=== PATIENT | female | born 1945 | race Caucasian/White ===

== ENCOUNTER → 2016-08-15 | Outpatient (CLI) | payer MEDICARE ==
[~2016-08-15] MED LIST: ATENOLOL25 MG PO; COMBIVENT1 ARO; FLUTICASON0.05 MG/AC NAS; INSULIN-HUMA100 U/ML; INVOKANA100 M1 PO; LANTUS100 U/ML SC; LISINOPRIL HCTZ1 TA1 PO; LOSARTAN POTASS1 TA5 PO; MAXZIDE 25 MG-31 TAB PO; MULTIVITAMIN1 CTB PO; NOVOLOG MI100 UNIT/1 SC; OMEPRAZOLE20 MG PO; PROMETHAZINE25 M1 PO; SYNTHROID,LEV112 MCG PO; TRIAMTERENE AND1 TAB PO; VICODIN 5/500 505 MG PO; VITAMIN D32000 UNI1 PO; XANAX1 MG PO
== END | disposition home or self-care (01) ==
LOC: RAD 13:56
DX: M17.0 Bilateral primary osteoarthritis of knee (principal); M16.0 Bilateral primary osteoarthritis of hip; G89.29 Other chronic pain

== ENCOUNTER 2016-08-19 20:19 | Inpatient (IN) | payer MEDICARE ==
[~2016-08-19] VITALS: Ht 154.9 cm; Wt 100.0 kg
[2016-08-19 20:19] VITALS: BP 134/78
[2016-08-19 20:44] LABS: BASO % 0.5 % (0.0-1.0); EOS # 0.3 10*3/uL (0.0-0.4); EOS % 3.2 % (1.0-4.0); HEMOGLOBIN 15.8 g/dl (12.0-16.0); LYMPH # 1.6 10*3/uL (1.3-4.4); LYMPH % 20.1 % (27.0-41.0); MEAN CELL VOLUME 85.8 fl (81.0-99.0); MEAN CORPUSCULAR HGB 28.8 pg (27.0-31.0); MEAN CORPUSCULAR HGB CONC 33.6 g/dl (33.0-37.0); MEAN PLATELET VOLUME 9.4 fl (9.6-12.3); MONO # 0.8 10*3/uL (0.1-1.0); MONO % 9.7 % (3.0-9.0); NEUT # 5.3 10*3/uL (2.3-7.9); NEUT % 66.1 % (47.0-73.0); PLATELET COUNT AUTOMATED 322 10*3/uL (130-400); RED BLOOD COUNT 5.48 10*6/uL (4.10-5.10); RED CELL DISTRI WIDTH 12.5 % (0-14.5)
[2016-08-19 20:56] LABS: POTASSIUM 3.8 mmol/L (3.5-5.1)
[2016-08-19 21:14] LABS: BILIRUBIN NEGATIVE (NEGATIVE); BLOOD TRACE-INTACT (NEGATIVE); CLARITY CLEAR (CLEAR); COLOR YELLOW (YELLOW); GLUCOSE 3+ (NEGATIVE); KETONE NEGATIVE (NEGATIVE); LEUKO ESTERASE NEGATIVE (NEGATIVE); NITRITE NEGATIVE (NEGATIVE); PH 5.5 (5.0-9.0); PROTEIN NEGATIVE (NEGATIVE); SPECIFIC GRAVITY <= 1.005 (1.005-1.030); UROBILINOGEN 0.2 E.U./dl (0.2-1.0)
[2016-08-19 21:18] LABS: BACTERIA TRACE; EPITHELIAL CELLS 0-2; RBC 0-2 rbc/hpf (0-2)
[2016-08-19 21:19] LABS: URINE REFLEX COMMENT YES (NO)
[2016-08-19 23:45] VITALS: BP 157/67
[2016-08-20 06:34] LABS: BASO % 0.4 % (0.0-1.0); EOS # 0.3 10*3/uL (0.0-0.4); EOS % 3.5 % (1.0-4.0); HEMATOCRIT 42.3 % (37.0-47.0); HEMOGLOBIN 13.9 g/dl (12.0-16.0); LYMPH % 21.5 % (27.0-41.0); MEAN CELL VOLUME 87.6 fl (81.0-99.0); MEAN CORPUSCULAR HGB 28.8 pg (27.0-31.0); MEAN CORPUSCULAR HGB CONC 32.9 g/dl (33.0-37.0); MEAN PLATELET VOLUME 9.3 fl (9.6-12.3); MONO # 1.1 10*3/uL (0.1-1.0); MONO % 11.5 % (3.0-9.0); NEUT % 62.8 % (47.0-73.0); PLATELET COUNT AUTOMATED 297 10*3/uL (130-400); RED BLOOD COUNT 4.83 10*6/uL (4.10-5.10); RED CELL DISTRI WIDTH 12.6 % (0-14.5); WHITE BLOOD COUNT 9.5 10*3/uL (4.8-10.8)
[2016-08-20 06:50] LABS: BUN 21 mg/dl (7-24); CARBON DIOXIDE 29 mmol/L (21-32); CHLORIDE 105 mmol/L (98-107); GLUCOSE 137 mg/dL (65-99); POTASSIUM 3.6 mmol/L (3.5-5.1); SODIUM 143 mmol/L (136-145)
[2016-08-20 07:02] LABS: EST GLOM FILT AFRICAN AMERICAN > 60 ml/min; FREE T4 1.23 ng/dl (0.76-1.46)
[2016-08-20 08:00] VITALS: BP 134/60
[2016-08-20 11:52] VITALS: BP 128/50
[2016-08-20 15:46] VITALS: BP 145/51
== END 2016-08-20 18:02 | disposition home or self-care (01) | DRG 683 ==
LOC: ED 20:19 → EDHOLD 22:08 → 4E 22:08
PROVIDERS: Internal Medicine; Student in an Organized Health Care Education/Training Program
DX: N17.0 Acute kidney failure with tubular necrosis (principal); Z68.41 Body mass index [BMI] 40.0-44.9, adult; E11.65 Type 2 diabetes mellitus with hyperglycemia; I10 Essential (primary) hypertension; E86.0 Dehydration; E03.9 Hypothyroidism, unspecified; J45.20 Mild intermittent asthma, uncomplicated; M19.90 Unspecified osteoarthritis, unspecified site; Z82.0 Family history of epilepsy and other diseases of the nervous system; Z83.3 Family history of diabetes mellitus; Z80.51 Family history of malignant neoplasm of kidney; Z88.6 Allergy status to analgesic agent; Z88.8 Allergy status to other drugs, medicaments and biological substances; Z79.4 Long term (current) use of insulin; Z79.899 Other long term (current) drug therapy; E66.01 Morbid (severe) obesity due to excess calories

== ENCOUNTER → 2016-11-22 | Outpatient (CLI) | payer MEDICARE | END | disposition home or self-care (01) | LOC: CT 14:35 | DX: M17.11 Unilateral primary osteoarthritis, right knee (principal); M25.761 Osteophyte, right knee; Z96.651 Presence of right artificial knee joint ==

== ENCOUNTER → 2017-01-14 | Outpatient (CLI) | payer MEDICARE ==
[2017-01-14 10:46] LABS: BASO # 0.1 10*3/uL (0.0-0.1); BASO % 0.6 % (0.0-1.0); EOS # 0.3 10*3/uL (0.0-0.4); EOS % 3.7 % (1.0-4.0); HEMATOCRIT 46.2 % (37.0-47.0); HEMOGLOBIN 15.7 g/dl (12.0-16.0); LYMPH % 24.4 % (27.0-41.0); MEAN CORPUSCULAR HGB 29.6 pg (27.0-31.0); MONO # 0.7 10*3/uL (0.1-1.0); NEUT % 61.8 % (47.0-73.0); PLATELET COUNT AUTOMATED 294 10*3/uL (130-400); RED BLOOD COUNT 5.31 10*6/uL (4.10-5.10); RED CELL DISTRI WIDTH 12.8 % (0-14.5); WHITE BLOOD COUNT 8.1 10*3/uL (4.8-10.8)
[2017-01-14 10:50] LABS: BILIRUBIN NEGATIVE (NEGATIVE); BLOOD NEGATIVE (NEGATIVE); CLARITY CLEAR (CLEAR); COLOR YELLOW (YELLOW); GLUCOSE 3+ (NEGATIVE); KETONE NEGATIVE (NEGATIVE); LEUKO ESTERASE NEGATIVE (NEGATIVE); NITRITE NEGATIVE (NEGATIVE); PH 5.5 (5.0-9.0); SPECIFIC GRAVITY 1.015 (1.005-1.030); UROBILINOGEN 0.2 E.U./dl (0.2-1.0)
[2017-01-14 11:17] LABS: ALBUMIN 3.6 gm/dl (3.1-4.5); ALKALINE PHOSPHATASE 68 U/L (45-117); BUN 24 mg/dl (7-24); CHLORIDE 104 mmol/L (98-107); RBC 0-2 rbc/hpf (0-2); SGOT/AST 22 IU/L (3-35); SGPT/ALT 18 U/L (12-78); SODIUM 140 mmol/L (136-145); TOTAL PROTEIN 7.6 gm/dL (6.4-8.2)
== END | disposition home or self-care (01) ==
LOC: LAB 08:37
PROVIDERS: Orthopaedic Surgery
DX: M17.11 Unilateral primary osteoarthritis, right knee (principal); Z96.651 Presence of right artificial knee joint; E11.9 Type 2 diabetes mellitus without complications; I10 Essential (primary) hypertension; J45.909 Unspecified asthma, uncomplicated; Z79.899 Other long term (current) drug therapy

== ENCOUNTER 2017-01-21 02:59 | Inpatient (IN) | payer MEDICARE ==
[~2017-01-21] VITALS: Ht 154.9 cm; Wt 94.3 kg
[2017-01-21] VITALS (9 sets, daily range): BP systolic 123–157; BP diastolic 42–64
--- NOTE | ~2017-01-21 | O ---
[place], [place] OPERATIVE NOTE NAME: DEION DAVIS [facility] #: [id number] UNIT #: [id number] ROOM: 404 DOCTOR: CHERYL PEREZ DO BIRTHDATE: [birth year] DOS: 01/21/2017 PREOPERATIVE DIAGNOSIS: Right knee osteoarthritis. POSTOPERATIVE DIAGNOSIS: Right knee osteoarthritis. OPERATIVE PROCEDURE: Right total knee ConforMIS tricompartmental cemented. SURGEON: Cheryl Perez DO. FIRST ASSISTANTS: Juanis and Anny. ANESTHESIA: KRISHAN Parker. TYPE OF ANESTHESIA: Spinal. INDICATIONS: The patient is a 71-year-old female with a history of severe osteoarthritis of the right knee, unrelieved with conservative care. The risks and benefits of the procedure were explained to the patient and her preoperatively. Preoperative labs and x-rays were obtained including preoperative medical clearance. PROCEDURE IN DETAIL: The right knee was marked in the holding room. The patient was brought to the operative suite. A spinal anesthetic was performed. The patient received Ancef 2 grams IV piggyback. The patient was placed supine on the operative table. A tourniquet was applied to the right upper thigh. The right lower extremity was prepped and draped in the usual orthopedic fashion. A midline incision was planned over the right knee and the area was injected with Marcaine 0.25% with epinephrine. The extremity was exsanguinated and the tourniquet was inflated to 350 mmHg. The patient received the Ancef 2 grams IV piggyback prior to inflation of the tourniquet. The incision was made sharply with a scalpel. Subcutaneous tissue was spread down to the level of the quadriceps mechanism. Electrocautery was used to maintain hemostasis. The quadriceps mechanism was divided in medial parapatellar fashion. The patella was slid laterally and the knee was flexed 90 degrees. The prepatellar fat pad and anterior cruciate ligament were debrided. The F1 jig was placed over the distal femur with the stylus at the anterior cortex. The coring tool was utilized to create 2 holes in the distal femur to the level of the subchondral bone. The alignment I Jig F2 was attached to the distal resection I jig F3C. Two parallel drill holes were placed to the anterior femur, followed by a cross pin to stabilize the distal cutting block. The distal holes in the femur were then drilled and marked with a marking pen. The F2-I jig was removed. The step cut was made utilizing the reciprocating saw, followed by the oscillating saw. The cross pin was removed. The F3C block was removed. The spacer block was used to confirm the cut of the distal femur. Two smooth pins were placed from the previously marked holes in the distal femur. The F4 block was put into place over these pins. The jono wing was used to confirm the anterior resection would not notch the femur. Two [place], [place] OPERATIVE NOTE NAME: DEION DAVIS UNIT #: [id number] ROOM: [facility] DOCTOR: CHERYL PEREZ DO BIRTHDATE: [birth year] additional cross pins were placed. The anterior femoral cut followed by the posterior femoral cut and the anterior chamfer cuts were made. The drill was used to make the corresponding lug holes in the distal femur through this F4-I jig. Pins were removed and the cuts were evaluated. The chamfer I jig F4 was then placed over the previously drilled lug holes and gently impacted. The open chamfer cut resection was made followed by the captured resection. The jig was removed and the area was copiously irrigated with normal limits. Any remaining medial and lateral meniscal tissue was debrided. The posterior condyles were removed of any osteophytes using a curved osteotome, followed by a curette. Then, the area was copiously irrigated with normal saline. Attention was then turned to the proximal tibia. The T1 5 degree I jig was placed over the proximal tibia after the articular cartilage was removed with a curette to level of subchondral bone. The 5 degree T1 jig was then secured with pins and the alignment xiomy was attached to ensure proper position. When this was completed, the x-pins were placed to stabilize the block. The proximal tibial cut was made using an oscillating saw, followed by an osteotome to remove the articular surface of the tibia. Any remaining tibial or femoral fragments were removed as well as any loose bony debris. Any remaining meniscus tissue was removed. The area was copiously irrigated with normal saline. The femoral trial and the tibial trials were put into place. The knee was taken through range of motion, 0-120, noted to have good stability at 0 and 30 degrees in both varus and valgus directions. The rotation was marked with a Bovie for the distal femur. The trials were removed. The tibial block was put into place,, followed by the intramedullary reamer at 12 mm and the flange punch. This was removed and the area was again irrigated. The patella was measured and determined to be best served with the 29 mm patellar component, which was 6 mm thick. The articular surface of the patella was removed using a freehand oscillating saw. The 3 peg hole guide was utilized to drill the holes for the trial. The trial was put into place. All trials were replaced and the knee was taken through a range of motion, evaluating patellar tracking, varus and valgus stress and range of motion. When these were all found to be adequate, the trials were removed. The area was copiously irrigated with normal saline. The methyl methacrylate was mixed. The tibial tray was covered with methyl methacrylate, impacted into place. Any excess cement was removed using a Garland elevator. The femoral component was then covered with a single layer of methyl methacrylate impacted into place. Any excess cement was removed with the Garland elevator and curette. The trial lateral tibial insert 7 mm and medial tibial insert 7 mm were put into place and the knee was brought into full extension. The methyl methacrylate was allowed to set. As this was hardening, the patellar implant was cemented into place and held with a clamp. When all methyl methacrylate was hard, the polyethylene trials were removed. The area was evaluated for any remaining cement. The posterior capsules were injected with Marcaine 0.25% with epinephrine. The 8 mm polyethylene insert was implanted laterally, followed by medially and clicked into place. The range of motion was again performed as was the varus and valgus stress. All were found to be adequate. [place], [place] OPERATIVE NOTE NAME: DEION DAVIS Mckenna UNIT #: [id number] ROOM: [facility] DOCTOR: CHERYL PEREZ DO BIRTHDATE: [birth year] Final irrigation was performed of the knee. The wound was closed in a layered fashion with 0 Vicryl, followed by 0 Vicryl for the quadriceps mechanism, followed by 2-0 Vicryl for the adipose layer and skin rick. The tourniquet was released. The dressing of Xeroform, 4 x 4's, Adaptic, cast padding and Edwin bandage was applied. The patient was taken to the recovery room in satisfactory condition. SPONGE AND NEEDLE COUNT: Correct. ESTIMATED BLOOD LOSS: 100 mL. DRAINS: None. PACKING: None. SPECIMENS: Bone and soft tissue. FINDINGS: Tricompartmental osteoarthritis of the right knee with multiple cystic areas which were curetted and filled with autologous bone graft. IMPLANTS: ConforMIS total knee with an I total femoral and tibial implants and the I total 8 mm poly cruciate retaining insert and a 29 mm patellar component. CHERYL PEREZ DO CM:OPRECORD:OPERATIVE NOTE 1514 CHERYL PEREZ DO 01/21/17 1647 interface
[~2017-01-21 02:59] MED LIST changes: -NOVOLOG MI100 UNIT/1 SC; +NOVOLOG MI100 UNIT/1 SQ
--- NOTE | 2017-01-21 12:00 | NUR ---
A 71, admitted to , under the services of ZHAO Contreras DO with a diagnosis of ARTHROPLASTY R KNEE. Chief complaint is POST-OP. Patient arrived via stretcher from [place]. Monitor applied. Initial assessment completed. Vital signs taken and recorded. ZHAO CONTRERAS DO notified of admission to the unit. Orders received. See assessment for past medical history, medications and allergies. Patient and/or family oriented to unit. [facility] visitation policy reviewed. Clothing/patient valuable form completed. ELIF MCDUFFIE
--- NOTE | 2017-01-21 13:50 | NUR ---
INSTRUCTED FOR IS. PT ACHIEVING A VOLUME OF 1000 X 7 BREATHS. PT VERY SLEEPY. WILL REINSTRUCT. SAT 99% ON 2L/M.
--- NOTE | 2017-01-21 14:15 | NUR ---
PHYSICAL THERAPY PT attempted two times to initate PT, patient to lethargic. Will attept at a later date or time. Thank you for this referral. Felisha Unger,PT
[2017-01-21 15:16] LABS: BASO % 0.2 % (0.0-1.0); EOS % 0.2 % (1.0-4.0); HEMATOCRIT 44.5 % (37.0-47.0); HEMOGLOBIN 14.3 g/dl (12.0-16.0); LYMPH % 6.1 % (27.0-41.0); MEAN CELL VOLUME 91.9 fl (81.0-99.0); MEAN CORPUSCULAR HGB 29.5 pg (27.0-31.0); MEAN CORPUSCULAR HGB CONC 32.1 g/dl (33.0-37.0); MEAN PLATELET VOLUME 9.6 fl (9.6-12.3); MONO # 1.2 10*3/uL (0.1-1.0); MONO % 7.1 % (3.0-9.0); NEUT # 14.4 10*3/uL (2.3-7.9); NEUT % 85.9 % (47.0-73.0); PLATELET COUNT AUTOMATED 232 10*3/uL (130-400); RED BLOOD COUNT 4.84 10*6/uL (4.10-5.10); RED CELL DISTRI WIDTH 12.9 % (0-14.5); WHITE BLOOD COUNT 16.7 10*3/uL (4.8-10.8)
[2017-01-21 15:29] LABS: ALBUMIN 2.7 gm/dl (3.1-4.5); ALKALINE PHOSPHATASE 64 U/L (45-117); BUN 12 mg/dl (7-24); CHLORIDE 113 mmol/L (98-107); CREATININE 0.78 mg/dL (0.55-1.02); POTASSIUM 3.7 mmol/L (3.5-5.1); SGOT/AST 17 IU/L (3-35); SGPT/ALT 18 U/L (12-78); SODIUM 142 mmol/L (136-145); TOTAL PROTEIN 6.4 gm/dL (6.4-8.2)
--- NOTE | 2017-01-21 15:31 | NUR ---
PHYSICAL THERAPY PAtient reports she is too ill for PT at [facility] time. Nurse educated. Thank you for this referral. Felisha archuleta,PT
--- NOTE | 2017-01-21 16:15 | NUR ---
CPM MACHINE APPLIED AT FLEXION 40 DEGREES. TOLERATING WELL.
--- NOTE | 2017-01-21 17:25 | NUR ---
RECTAL TEMP 95.3. BEAR HUGGER APPLIED.
--- NOTE | 2017-01-21 17:26 | NUR ---
SMALL EMESIS NOTED. MEDICATED WITH ZOFRAN ORDERED IV. REMAINS DROWSY. TOOK A COUPLE BITES OF POPSICLE AND APPLESAUCE. DENIES ANY NEED FOR PAIN MED AT THIS TIME.
--- NOTE | 2017-01-21 19:00 | NUR ---
PT. STATES THAT PT. IS DOING I/S WITH HIS ASSISTENCE.
--- NOTE | 2017-01-21 22:37 | NUR ---
PT REQUESTED PAIN MEDICATION FOR RIGHT KNEE PAIN. PAIN RATED AT 5. TYLENOL GIVEN.
--- NOTE | 2017-01-21 23:18 | NUR ---
PAIN MEDICATOIN EFFECTIVE PER PT. PAIN RATED AT 3 OUT OF 10.
[2017-01-22] VITALS: BP 139/61
--- NOTE | 2017-01-22 00:06 | NUR ---
REMOVED WARMING BLANKET FROM PT. ORAL TEMP 97.9. PT COMPLAINING OF BEING HOT AND SWEATING. RECHECKED TEMP 1 HOUR LATER. TEMP WAS 97.8 ORALLY. WILL CONTINUE TO MONITOR PT AND TEMP.
--- NOTE | 2017-01-22 00:09 | NUR ---
PT REQUESTED MEDICATION FOR NAUSEA. ZOFRAN GIVEN.
--- NOTE | 2017-01-22 00:33 | NUR ---
ZOFRAN EFFECTIVE PER PT. NAUSEA/VOMITING HAS DECREASED.
--- NOTE | 2017-01-22 03:30 | NUR ---
PT REQIUESTED MEDICATION FOR NAUSEA. ZOFRAN GIVEN.
--- NOTE | 2017-01-22 03:45 | NUR ---
PT TEMP REMAINS AT 97.9. WARMING [facility] REMAINS OFF.
[2017-01-22 03:47] VITALS: BP 135/47
--- NOTE | 2017-01-22 04:01 | NUR ---
ZOFRAN EFFECTIVE. PT REPORTS DECREASE OF NAUSEA.
[2017-01-22 06:11] LABS: BASO % 0.2 % (0.0-1.0); HEMATOCRIT 39.7 % (37.0-47.0); LYMPH # 0.8 10*3/uL (1.3-4.4); MEAN CELL VOLUME 90.2 fl (81.0-99.0); MEAN CORPUSCULAR HGB 29.5 pg (27.0-31.0); MEAN CORPUSCULAR HGB CONC 32.7 g/dl (33.0-37.0); MEAN PLATELET VOLUME 9.5 fl (9.6-12.3); MONO # 1.5 10*3/uL (0.1-1.0); MONO % 12.1 % (3.0-9.0); NEUT # 9.7 10*3/uL (2.3-7.9); NEUT % 80.3 % (47.0-73.0); PLATELET COUNT AUTOMATED 252 10*3/uL (130-400); RED CELL DISTRI WIDTH 13.2 % (0-14.5)
--- NOTE | 2017-01-22 06:19 | NUR ---
PT REQUESTED PAIN MEDICATION FOR POST-OP PAIN IN RIGHT KNEE. "SORE AND HURTS TO MOVE IT." RATED 9 OUT OF 10.
[2017-01-22 06:38] LABS: ACT PARTIAL THROMBO TIME 25.4 SECONDS (20.8-31.5)
[2017-01-22 06:41] LABS: ALBUMIN 2.7 gm/dl (3.1-4.5); BUN 11 mg/dl (7-24); CHLORIDE 104 mmol/L (98-107); CHOLESTEROL 157 mg/dL (<200); CREATININE 0.82 mg/dL (0.55-1.02); MAGNESIUM 1.5 mg/dL (1.5-2.1); PHOSPHOROUS 3.2 mg/dL (2.5-4.9); POTASSIUM 3.7 mmol/L (3.5-5.1); SGOT/AST 18 IU/L (3-35); SGPT/ALT 15 U/L (12-78); SODIUM 140 mmol/L (136-145); TOTAL PROTEIN 6.2 gm/dL (6.4-8.2); TRIGLYCERIDES 82 mg/dl (<150); VLDL CHOLESTEROL 16 mg/dL (6-40)
[2017-01-22 06:48] LABS: ALKALINE PHOSPHATASE 58 U/L (45-117); HDL CHOLESTEROL 58 mg/dl (40-60); LDL CHOLESTEROL 83 mg/dL (9-159); THYROID STIM HORMONE (HS) 0.519 uIU/ml (0.358-4.75)
[2017-01-22 07:01] LABS: VITAMIN D, 25-HYDROXY 34.8 ng/mL (30-100)
--- NOTE | 2017-01-22 07:06 | NUR ---
TYLENOL EFFECTIVE PER PT. PAIN RATED AT 4 OUT OF 10.
[2017-01-22 08:00] VITALS: BP 134/65
--- NOTE | 2017-01-22 08:00 | NUR ---
Paper Novelty Maker in to talk to patient. Patient states lives at HOME with HER . There are 11 steps in the home. Physician: ONEL Pharmacy: [facility] Home health services: Patient's level of ADLs: Patient has working utilities: YES DME: [facility] Follow-up physician's appointment after d/c: WILL BE MADE PRIOR TO DC Does patient want to access PORTAL?: Discharge plan . MOIRA MADDEN REQUESTS SNF STAY AT THE [facility]. STATES SHE HAS ALREADY SPOKEN TO YISEL AT [facility] AND SHOULD HAVE BED AVAILABLE BY TIME SHE IS DC. DC OFFICE WORKER WILL MAKE REFERRAL.
--- NOTE | 2017-01-22 08:55 | NUR ---
MEDICATED WITH PERCOCET FOR COMPLAINTS OF RIGHT KNEE PAIN. RATES PAIN A 7 ON A PAIN SCALE OF 1-10.
--- NOTE | 2017-01-22 09:54 | NUR ---
PHYSICAL THERAPY PAtient evaluated on 4, full evaluation to follow. Continue with PT as per plan of care with fall, acute right TKA and mod (A) x 2 precautions. Will require SNF for impaired mobility in order to return to home at (i) PLOF. PAtient is moderate complexity via chart review, tests and evaluation: [id number]. Thank you for this referral. Felisha Adamson,PT
--- NOTE | 2017-01-22 10:35 | NUR ---
Occupational Therapy evaluation completed this date on 4 with full eval to follow. Precautions include fall risk, moderate complexity level 75162, R TKA, CPM to right knee. Recommend OT per POC and SNF upon d/c to enable safe return home at [facility]. Thank you for this referral. Tereza Allen OTR/l
--- NOTE | 2017-01-22 10:42 | NUR ---
Patient asked to be referred to the [facility] rehab suites. Contacted [facility] and faxed referral, will need snf order and requires a 3 night stay. Waiting on acceptance.
--- NOTE | 2017-01-22 11:43 | NUR ---
PHYSICAL THERAPY Alexia adames for her physical therapy session and wanting to go back to bed having right knee pain. Pt is a right TKA with impaired mobility. With verbal cueing transfer sit/stand with MOD A X 1, up on wheeled walker standing balance once up MIN A X 1, standing. Then gait 8' X 1, with wheeled walker and MOD SOURCING SPECIALIST X 1, with verbal cueing for gait safety with just slow gait due to right TKA and no LOB. Pt back supine MOD A X 1, Pt with call light and nursing in to put on her CPM. ROD SPEAR HOT BLASTER.
[2017-01-22 12:00] VITALS: BP 160/46
--- NOTE | 2017-01-22 14:13 | NUR ---
PHYSICAL THERAPY Pnt was seen for 20' of 1:1 PT this pm. Pain on arrival 01/14. Pnt was instructed in basic supine exercises incl: glut sets, quad sets, and ankle pumps x 10 reps each along with gentle heel slides x 5 reps. She transferred to EOB with min assist x 1 primarily to stabilize R LE during activity. Sit to stand required mod assist x 1 to puw. She ambulated a distance of 6' to chair at bedside with education in patterning and off-loading techniques. Once at chair, she transferred to sitting with min assist x 1, again with step by step instruction. Feet were elevated and call light placed within reach. Pnt demonstrated difficulty WB thru R LE throughout gait d/t increased pain. Pain on departure 01/14. Nurse notified of difficulties with pain control. Elda Rodriguez, PT
--- NOTE | 2017-01-22 15:01 | NUR ---
MEDICATED WITH ULTRAM FOR COMPLAINTS OF RIGHT KNEE PAIN AND ZOFRAN 4MG IV FOR NAUSEA. RATES PAIN A 10 ON A PAIN SCALE 1-10.
[2017-01-22 16:00] VITALS: BP 112/38
--- NOTE | 2017-01-22 17:46 | NUR ---
I HAVE REVIEWED THE ASSESSMENTS. Michelle HANDY RN
--- NOTE | 2017-01-22 19:30 | NUR ---
PT REQUESTED PAIN MEDICATION FOR RIGHT KNEE PAIN, "ABOVE THE KNEE AND DOWN." PT RATES PAIN AT 8 OUT OF 10.
[2017-01-22 20:00] VITALS: BP 149/48
--- NOTE | 2017-01-22 20:21 | NUR ---
PT STILL IN PAIN. STATES IT IS DECREASING BUT STILL VERY PAINFUL.
--- NOTE | 2017-01-22 21:05 | NUR ---
PT PLACED IN CPM MACHINE AT 0 EXTENSION, 40 FLEXION. TOLERATING WELL ALTHOUGH IN MUCH PAIN. PT ALSO HAD BEEN RUNNING A SLIGHT FEVER. AT 1999 TEMP WAS 99.7. WHEN RECHECKED AT 2099 HER TEMP WAS 100.0. NOTIFIED VIA ANSWERING SERVICE. PER DR. RIOS, SHE WANTS THE PTS TYLENOL AND ULTRAM TO ALTERNATE.
--- NOTE | 2017-01-22 22:11 | NUR ---
PT REMOVED FROM CPM. TOLERATED WELL. REPOSITIONED IN BED. TYLENOL ADMINISTERED FOR POST-OP PAIN OF RIGHT KNEE. PT RATED PAIN AT 7 OUT OF 10.
--- NOTE | 2017-01-22 23:02 | NUR ---
TYLENOL SEEMS TO BE EFFECTIVE FOR PT. IN BED SLEEPING. NO DISTRESS NOTED.
[2017-01-23] VITALS: BP 153/46
--- NOTE | 2017-01-23 06:10 | NUR ---
PT. ALERT AND ORIENTED X3. PLACED PT. ON CPM MACHINE PER ORDERED SETTINGS. PT. TOLERATING THIS WELL AT THIS TIME.
[2017-01-23 06:16] LABS: HEMATOCRIT 35.4 % (37.0-47.0); HEMOGLOBIN 11.6 g/dl (12.0-16.0); MEAN CORPUSCULAR HGB 28.5 pg (27.0-31.0); MEAN CORPUSCULAR HGB CONC 32.8 g/dl (33.0-37.0); MEAN PLATELET VOLUME 9.7 fl (9.6-12.3); PLATELET COUNT AUTOMATED 263 10*3/uL (130-400); RED BLOOD COUNT 4.07 10*6/uL (4.10-5.10); RED CELL DISTRI WIDTH 13.2 % (0-14.5); WHITE BLOOD COUNT 11.6 10*3/uL (4.8-10.8)
[2017-01-23 06:30] VITALS: BP 148/40
[2017-01-23 06:50] LABS: BUN 14 mg/dl (7-24); CHLORIDE 103 mmol/L (98-107); CREATININE 0.75 mg/dL (0.55-1.02); POTASSIUM 3.3 mmol/L (3.5-5.1); SODIUM 139 mmol/L (136-145)
[2017-01-23 06:51] LABS: BASOPHILS 1 % (0-1); TOTAL CELLS COUNTED 100 #CELLS
[2017-01-23 06:54] LABS: PLATELET SUFFICIENCY NORMAL (NORMAL)
--- NOTE | 2017-01-23 07:00 | NUR ---
CPM DISCONTINUED PT. TOLERATED, ABOUT 1 HR, WELL. ICE PACK TO RIGHT KNEE.
--- NOTE | 2017-01-23 07:20 | NUR ---
DR. RIOS CALLED IN AND NOTIFIED PT. CONDITION AND ORDER PLACED BY HER TO DC RANDLE CATHETER.
[2017-01-23 08:00] VITALS: BP 142/48
--- NOTE | 2017-01-23 09:42 | NUR ---
PTS RANDLE CATHETER DISCONTINUED AT THIS TIME.
--- NOTE | 2017-01-23 10:11 | NUR ---
[facility] to [facility] and can go after 3 night stay, tomorrow 01/24/17
--- NOTE | 2017-01-23 10:41 | NUR ---
PHYSICAL THERAPY Alexia seen this AM 1:1 for her physical therapy session and we supinr in bed with small roll under right knee, quad, so taking this away to work in right knee extension. Pt said not much change in her pain and had her pain meds, 12/15. Transfer supine/sit slow with MOD A X 1, helping right LE. Sitting balance with right knee working into flexion to Pt's pain tolerance. Sit/stand and up on wheeled walker, standing balance with weight shift. Then gait only 4' X 1 and Alexia getting nauseated at this time and wanting to sit, said that she might vomit, Pt up in her bedside chair, calll light and tray just wanting to rest. I stopped back 1 hr 20 min later Pt said that she was feeling better and was going to stay up for now. ROD SPEAR TEST HOLE DRILLER.
--- NOTE | 2017-01-23 11:27 | NUR ---
DR. RIOS TO COME AT LUNCH TO DO DRESSING CHANGE PER HER OFFICE.
[2017-01-23 12:00] VITALS: BP 140/44
--- NOTE | 2017-01-23 12:04 | NUR ---
PHYSICAL THERAPY Alexia seen this PM 1:1 for her therapy session and had just gotten back into bed from this morning. Gait with her aids and wheeled walker 8' X 1, back into bed no LOB. Pt had rom act assist and act Ex to right LE, knee with slight improvement in her pain. Working more on right knee flexion/extension with slight stretch. Pt with call light, phone and lunch coning. ROD SPEAR DRIVEWAY ATTENDANT.
[2017-01-23 16:00] VITALS: BP 130/44
[2017-01-23 20:00] VITALS: BP 134/43
--- NOTE | 2017-01-23 21:46 | NUR ---
PRN ULTRAM GIVEN FOR PT COMPLAINTS OF 8/10 RIGHT KNEE PAIN. CALL LIGHT WITHIN REACH, WILL MONITOR
--- NOTE | 2017-01-23 23:00 | NUR ---
PRN MEDICATION APPEARS EFFECTIVE, PT SLEEPING
--- NOTE | 2017-01-23 23:46 | NUR ---
PRN TYLENOL GIVEN FOR LOW GRADE TEMP OF 99.3. CALL LIGHT WITHIN REACH, WILL MONITOR
[2017-01-24] VITALS: BP 153/54
[2017-01-24 06:14] LABS: BASO % 0.4 % (0.0-1.0); EOS # 0.2 10*3/uL (0.0-0.4); EOS % 1.7 % (1.0-4.0); HEMATOCRIT 34.4 % (37.0-47.0); HEMOGLOBIN 11.3 g/dl (12.0-16.0); LYMPH # 2.3 10*3/uL (1.3-4.4); LYMPH % 22.4 % (27.0-41.0); MEAN CORPUSCULAR HGB 28.9 pg (27.0-31.0); MEAN CORPUSCULAR HGB CONC 32.8 g/dl (33.0-37.0); MEAN PLATELET VOLUME 9.2 fl (9.6-12.3); MONO # 1.4 10*3/uL (0.1-1.0); MONO % 13.4 % (3.0-9.0); NEUT # 6.2 10*3/uL (2.3-7.9); NEUT % 61.4 % (47.0-73.0); PLATELET COUNT AUTOMATED 255 10*3/uL (130-400); RED BLOOD COUNT 3.91 10*6/uL (4.10-5.10); RED CELL DISTRI WIDTH 13.2 % (0-14.5); WHITE BLOOD COUNT 10.1 10*3/uL (4.8-10.8)
--- NOTE | 2017-01-24 06:33 | NUR ---
PATIENT PLACED ON CPM MACHINE AT THIS TIME
[2017-01-24 08:00] VITALS: BP 133/46
--- NOTE | 2017-01-24 09:13 | NUR ---
PHYSICAL THERAPY Alexia seen this AM X 2 and is on her CPM, will stop back later today. ROD SPEAR RESEARCH PROGRAM MANAGER.
--- NOTE | 2017-01-24 09:55 | NUR ---
MEDICATED WITH PRN PO TYLENOL FOR RIGHT KNEE PAIN.
--- NOTE | 2017-01-24 10:34 | NUR ---
PHYSICAL THERAPY Back to treat Pt, Pt off her CPM, had her OT treatment and was up in her bedside chair. Start with rom, act assist and act to right LE knee, flexion/extension with much improvement today over yesterday and not as much pain this treatment. Sit/stand and up on standard walker standing balance MOD A X 1, no LOB. Followed by gait her best so far 42' X 1, standard walker and MOD A X 1, no LOB with cueing for gait, walker, turn safety and heel strike, toe off improving due to her pain improving. Pt back up in her bedside chair, call light, phone and no complaint. ROD SPEAR SAP HANA DEVELOPER.
--- NOTE | 2017-01-24 11:02 | NUR ---
PRN PO TYLENOL EFFECTIVE, PER PATIENT.
[2017-01-24] MEDS ORDERED: NORCO 5-325 TA1 EACH PO (11:05)
[2017-01-24] MEDS ORDERED: DUONEB 3 MG/3 ML3 M1 NEB (11:05)
[2017-01-24] MEDS ORDERED: Insulin Lispro, Reco SC (11:05)
--- NOTE | 2017-01-24 11:36 | NUR ---
Patient is being discharged to [facility] at 2PM with [place]. Tx and nursing notified.
--- NOTE | 2017-01-24 11:47 | NUR ---
PATIENT SEEN FOR 30 MINUTES THIS DATE. PATIENT SEEN 1:1. IDENTIFIED PATIENT BY NAME AND DATE OF . PATIENT IN BED UPON ARRIVAL. COMPLETED SUPINE TO SIT EOB MOD A WITH EDUCATION USE RAIL INCREASE INDEPENDENCE. PATIENT COMPLETED STAND PIVOT TRANSFER USE WALKER KACIE BED TO TOILET AND BACK TO BED. COMPLETED TOILETING MIN A THIS DATE WITH EDUCATION USE WALKER SUPPORT AND SAFETY. PATIENT COMPLETED AMBULATION SHORT DISTANCE TO RECLINER MIN A WITH USE WALKER WITH MOD VERBAL CUES SAFETY. PATIENT COMPLETED STANDING TOLERANCE ACTIVITY USE WALKER SUPPORT 4 MINUTES WITH C/O FATIGUE. PATIENT C/O PAIN R TKA THIS DATE WITH NURSING AWARE. PATIENT REQUIRED INCREASE TIME TO COMPLETE TASKS. PATIENT UP SEATED IN RECLINER COMPLETING GROOMING ZAPATA WITH CALL LIGHT WITHIN REACH. MAGALYS KRAFT/Rozina
[2017-01-24 12:00] VITALS: BP 128/51
--- NOTE | 2017-01-24 12:24 | NUR ---
PHYSICAL THERAPY CO-SIGN I approve of the Phyical Therapy notes written above. JULIA MARTI PT
--- NOTE | 2017-01-24 12:42 | NUR ---
REPORT CALLED TO RECEIVING NURSE AT [facility]. LUMBER CARRIER OPERATOR FOR DISCHARGE BY [facility] SCHEDULED FOR 2PM.
--- NOTE | 2017-01-24 13:59 | NUR ---
PATIENT DISCHARGED TO [facility] BY AMBULANCE SERVICE, IS PRESENT.
--- NOTE | 2017-01-24 14:11 | NUR ---
UPON REVIEW OF DISCHARGE INSTRUCTIONS, NO ORDER FOR PROPHYLACTIC LOVENOX SC NOTED. PER DR. RIOS'S OFFICE STAFF, PROGRESS NOTE FROM 01/[address] RIOS INDICATES LOVENOX 30MG SC DAILY TO CONTINUE AFTER DISCHARGE, DR. GÓMEZ NOTIFIED, NOTIFIED [facility] AND FAXED THE PROGRESS NOTE TO [facility].
[2017-01-24] MEDS ORDERED: Lovenox40 MG/0.4 SQ (14:32)
--- NOTE | 2017-01-24 14:45 | NUR ---
[facility] called and reviewed the LOvenox order. Lovenox to be stopped on POD#14 (after 02/04/17 dose.) Also reviewed that per orders rick to removed POD#14 and steri-strips applied
--- NOTE | 2017-01-27 08:25 | NUR ---
OCCUPATIONAL THERAPY CO-SIGN I approve of the Occupational Therapy notes written above. JOAQUIN HOGUE OTR/Rozina
== END 2017-01-24 12:42 | disposition other institution (70) | DRG 470 ==
LOC: SDC 02:59 → 4E 07:51 → SDC 08:45 → 4E 01-23 11:03
PROVIDERS: Internal Medicine Nephrology; Orthopaedic Surgery; ADMIT Internal Medicine
PROC: 0SRC0J9 Replacement of Right Knee Joint with Synthetic Substitute, Cemented, Open Approach (ICD-10-PCS; principal; 2017-01-21)
DX: M17.11 Unilateral primary osteoarthritis, right knee (principal); E44.0 Moderate protein-calorie malnutrition; E11.9 Type 2 diabetes mellitus without complications; J45.909 Unspecified asthma, uncomplicated; I10 Essential (primary) hypertension; E03.9 Hypothyroidism, unspecified; E55.9 Vitamin D deficiency, unspecified; Z79.4 Long term (current) use of insulin; Z82.0 Family history of epilepsy and other diseases of the nervous system; Z68.39 Body mass index [BMI] 39.0-39.9, adult; Z83.3 Family history of diabetes mellitus; Z80.51 Family history of malignant neoplasm of kidney; Z88.8 Allergy status to other drugs, medicaments and biological substances; Z79.899 Other long term (current) drug therapy

== ENCOUNTER → 2017-02-14 | Outpatient (CLI) | payer MEDICARE ==
[~2017-02-14] MED LIST changes: +DUONEB 3 MG/3 ML3 M1 NEB; +Insulin Lispro, Reco SC; +Lovenox40 MG/0.4 SQ; +NORCO 5-325 TA1 EACH PO
== END | disposition home or self-care (01) ==
LOC: ORTHO 03:23
DX: M25.461 Effusion, right knee (principal)

== ENCOUNTER → 2017-05-07 | Outpatient (CLI) | payer MEDICARE | END | disposition home or self-care (01) | LOC: ORTHO 00:39 | DX: M25.461 Effusion, right knee (principal); Z96.651 Presence of right artificial knee joint ==

== ENCOUNTER → 2017-05-28 | Outpatient (CLI) | payer MEDICARE ==
[2017-05-28 13:01] LABS: ACT PARTIAL THROMBO TIME 23.9 SECONDS (20.8-31.5); INTERNATIONAL NORM RATIO 0.9 (2.0-3.5)
== END | disposition home or self-care (01) ==
LOC: LAB 01:29 → EDSTATUS 13:00 → SDC 13:00
PROVIDERS: Family Medicine
DX: R59.0 Localized enlarged lymph nodes (principal)

== ENCOUNTER → 2017-08-01 | Outpatient (CLI) | payer MEDICARE ==
[2017-08-01 15:48] LABS: BASO % 0.5 % (0.0-1.0); EOS # 0.3 10*3/uL (0.0-0.4); EOS % 3.9 % (1.0-4.0); HEMATOCRIT 48.2 % (37.0-47.0); HEMOGLOBIN 15.7 g/dl (12.0-16.0); LYMPH % 24.4 % (27.0-41.0); MEAN CELL VOLUME 89.3 fl (81.0-99.0); MEAN CORPUSCULAR HGB 29.1 pg (27.0-31.0); MEAN CORPUSCULAR HGB CONC 32.6 g/dl (33.0-37.0); MEAN PLATELET VOLUME 9.1 fl (9.6-12.3); MONO # 0.7 10*3/uL (0.1-1.0); MONO % 8.5 % (3.0-9.0); NEUT # 5.2 10*3/uL (2.3-7.9); NEUT % 62.5 % (47.0-73.0); PLATELET COUNT AUTOMATED 313 10*3/uL (130-400); RED CELL DISTRI WIDTH 13.1 % (0-14.5); WHITE BLOOD COUNT 8.3 10*3/uL (4.8-10.8)
== END | disposition home or self-care (01) ==
LOC: ORTHO 00:33 → LAB 00:33 → ORTHO 17:41
PROVIDERS: Orthopaedic Surgery
DX: M25.461 Effusion, right knee (principal); Z96.651 Presence of right artificial knee joint

== ENCOUNTER → 2018-01-28 | Outpatient (CLI) | payer MEDICARE | END | disposition home or self-care (01) | LOC: ORTHO 01:02 | DX: M25.561 Pain in right knee (principal); Z96.651 Presence of right artificial knee joint ==

== ENCOUNTER 2018-07-13 03:32 | Emergency (ER) | payer MEDICARE ==
[~2018-07-13] VITALS: Ht 154.9 cm; Wt 84.4 kg
== END 2018-07-13 05:11 | disposition home or self-care (01) ==
LOC: ED 03:32
DX: R20.2 Paresthesia of skin (principal); T38.3X5A Adverse effect of insulin and oral hypoglycemic [antidiabetic] drugs, initial encounter; M19.90 Unspecified osteoarthritis, unspecified site; J45.909 Unspecified asthma, uncomplicated; E11.9 Type 2 diabetes mellitus without complications; E03.9 Hypothyroidism, unspecified; Z98.890 Other specified postprocedural states; Z79.899 Other long term (current) drug therapy; Z88.5 Allergy status to narcotic agent; Z88.6 Allergy status to analgesic agent; Z79.4 Long term (current) use of insulin; Y92.89 Other specified places as the place of occurrence of the external cause

== ENCOUNTER 2018-12-28 14:05 | Emergency (ER) | payer MEDICARE ==
[~2018-12-28] VITALS: Ht 154.9 cm; Wt 79.4 kg
[2018-12-28 15:34] LABS: BASO % 0.4 % (0.0-1.0); EOS # 0.2 10*3/uL (0.0-0.4); EOS % 3.8 % (1.0-4.0); HEMATOCRIT 39.4 % (37.0-47.0); HEMOGLOBIN 13.3 g/dl (12.0-16.0); LYMPH # 0.2 10*3/uL (1.3-4.4); MEAN CORPUSCULAR HGB 30.4 pg (27.0-31.0); MEAN CORPUSCULAR HGB CONC 33.8 g/dl (33.0-37.0); MEAN PLATELET VOLUME 8.4 fl (9.6-12.3); MONO # 0.8 10*3/uL (0.1-1.0); MONO % 16.8 % (3.0-9.0); NEUT # 3.5 10*3/uL (2.3-7.9); NEUT % 74.4 % (47.0-73.0); PLATELET COUNT AUTOMATED 205 10*3/uL (130-400); RED BLOOD COUNT 4.38 10*6/uL (4.10-5.10); RED CELL DISTRI WIDTH 13.5 % (0-14.5); WHITE BLOOD COUNT 4.7 10*3/uL (4.8-10.8)
[2018-12-28 15:44] LABS: ACT PARTIAL THROMBO TIME 28.1 SECONDS (20.0-32.1); INTERNATIONAL NORM RATIO 0.9 (2.0-3.5)
[2018-12-28 15:55] LABS: ALBUMIN 2.9 gm/dl (3.1-4.5); ALKALINE PHOSPHATASE 85 U/L (45-117); BUN 12 mg/dl (7-24); CHLORIDE 104 mmol/L (98-107); CREATININE 0.78 mg/dL (0.55-1.02); SGOT/AST 20 IU/L (3-35); SGPT/ALT 21 U/L (12-78); SODIUM 137 mmol/L (136-145); TOTAL PROTEIN 6.7 gm/dL (6.4-8.2)
== END 2018-12-28 17:20 | disposition home or self-care (01) ==
LOC: ED 14:05
PROVIDERS: Nurse Practitioner
DX: C85.90 Non-Hodgkin lymphoma, unspecified, unspecified site (principal); Z98.890 Other specified postprocedural states; Z79.899 Other long term (current) drug therapy; Z79.4 Long term (current) use of insulin; Z88.6 Allergy status to analgesic agent; Z88.5 Allergy status to narcotic agent

== ENCOUNTER → 2019-02-10 | Day surgery (SDC) | payer MEDICARE ==
[~2019-02-10] VITALS: Ht 154.9 cm; Wt 79.4 kg
[~2019-02-10] MED LIST changes: +ACYCLOVIR400 MG PO; +ALDACTONE25 M1 PO; +BENADRYL ALLERG25 M5 PO; +CARAFATE1 GM PO; +COMBIVENT RESPIM4 GM INH; +DECADRON4 MG PO; +IRBESARTAN75 M1 PO; +JARDIANCE25 MG PO; +LEVEMIR FL100 UNIT/1 SQ; +LIPITOR10 MG PO; +RITUXAN10 MG/1 ML IV; +SMZ/TMP 200MG/420 ML PO; +TYLENOL EXTRA500 MG PO; +XANAX0.25 MG PO; +ZYRTEC10 MG PO
--- NOTE | ~2019-02-10 | O ---
[place], [place] OPERATIVE NOTE NAME: DEION DAVIS [facility] #: [id number] UNIT #: [id number] ROOM: DOCTOR: SUSIE SUTHERLAND MD BIRTHDATE: [birth year] DOS: 02/10/2019 PREOPERATIVE DIAGNOSIS: Cataract, right eye. POSTOPERATIVE DIAGNOSIS: Cataract, right eye. OPERATION: Extracapsular cataract extraction by phacoemulsification with posterior chamber intraocular lens implantation, right eye. ANESTHESIA: Monitored standby. OPERATIVE FINDINGS AND PROCEDURE: 2% Xylocaine topical anesthetic gel was applied to the eye in the preop area. The patient was taken to the operating room and prepped and draped in the standard fashion for sterile intraocular surgery. A time out procedure was performed verifying correct patient, correct site and corrects lens with Jeri Sutherland M.D. The operating microscope was swung into position and the lid speculum was inserted. Using a Lizz paracentesis blade, a paracentesis was made through clear cornea. Viscoelastic was used to fill the anterior chamber. Using a metal keratome a 2.4 mm self-sealing clear corneal cataract incision was made temporally at the limbus. Using a pre-bent 25 gauge cystotome needle, a standard continuous curvilinear capsulorrhexis was performed. The anterior capsule was removed with forceps. The lens nucleus was hydrodissected and phacoemulsified in the posterior chamber. Cortical material was removed with the irrigation aspiration hand piece and the posterior capsule was then polished with a curet under irrigation. The posterior chamber and capsular bag were filled with viscoelastic. A posterior chamber intraocular lens manufactured by: [employer], Model #[id number], and 25.5 diopters in strength were then inserted into the posterior chamber and within the capsular bag using the lens cartridge and injector system. Viscoelastic was removed using the irrigation aspiration handpiece. The anterior chamber was filled with balanced salt solution through the paracentesis. Both the paracentesis site and cataract incisions were hydrated with BSS and verified to be water-tight and self-sealing. Cefuroxime 1 mg/0.1 mL was injected into the anterior chamber through the paracentesis site. The incision checked to be water-tight using a Weck-Alma sponge. The integrity of the cataract wound and ocular tension were checked. Lid speculum and drapes were removed. The patient was transferred from the operating room to the recovery room in satisfactory condition. [place], [place] OPERATIVE NOTE NAME: DEION DAVIS UNIT #: [id number] ROOM: DOCTOR: KOKO SHEN,SUSIE BIRTHDATE: [birth year] SUSIE SUTHERLAND MD CM:OPRECORD:OPERATIVE NOTE 1107 [id number] SUSIE SUTHERLAND MD 02/10/19 1114 interface
[2019-02-10 08:31] VITALS: BP 150/56
[2019-02-10 09:38] VITALS: BP 102/34
[2019-02-10 09:53] VITALS: BP 97/32
[2019-02-10 10:08] VITALS: BP 103/42
== END | disposition home or self-care (01) ==
LOC: SDC 02-04 10:15
DX: H25.811 Combined forms of age-related cataract, right eye (principal); I10 Essential (primary) hypertension; J45.909 Unspecified asthma, uncomplicated; F41.9 Anxiety disorder, unspecified; K21.9 Gastro-esophageal reflux disease without esophagitis; E78.00 Pure hypercholesterolemia, unspecified; E11.36 Type 2 diabetes mellitus with diabetic cataract; E66.9 Obesity, unspecified; Z68.33 Body mass index [BMI] 33.0-33.9, adult; Z79.899 Other long term (current) drug therapy; Z98.890 Other specified postprocedural states; Z88.8 Allergy status to other drugs, medicaments and biological substances; Z83.3 Family history of diabetes mellitus; Z82.49 Family history of ischemic heart disease and other diseases of the circulatory system; Z79.4 Long term (current) use of insulin

== ENCOUNTER → 2020-07-06 | Outpatient (CLI) | payer MEDICARE | END | disposition home or self-care (01) | LOC: RAD 13:44 | PROVIDERS: ATTEND Nurse Practitioner Family | DX: Z13.820 Encounter for screening for osteoporosis (principal); E11.9 Type 2 diabetes mellitus without complications; Z78.0 Asymptomatic menopausal state ==

== ENCOUNTER 2020-11-10 12:11 | Emergency (ER) | payer MEDICARE ==
[~2020-11-10] VITALS: Ht 154.9 cm; Wt 83.9 kg
== END 2020-11-10 16:41 | disposition home or self-care (01) ==
LOC: ED 12:11
DX: M77.8 Other enthesopathies, not elsewhere classified (principal); M25.531 Pain in right wrist; Z88.8 Allergy status to other drugs, medicaments and biological substances; Z88.6 Allergy status to analgesic agent; Z79.899 Other long term (current) drug therapy; Z79.4 Long term (current) use of insulin; Z98.890 Other specified postprocedural states; Z96.651 Presence of right artificial knee joint

== ENCOUNTER → 2020-12-21 | Outpatient (CLI) | payer MEDICARE | END | disposition home or self-care (01) | LOC: RAD 14:15 | PROVIDERS: ATTEND Nurse Practitioner Family | DX: R30.0 Dysuria (principal); R31.9 Hematuria, unspecified; E11.9 Type 2 diabetes mellitus without complications ==

== ENCOUNTER → 2021-02-20 | Outpatient (CLI) | payer MEDICARE | END | disposition home or self-care (01) | LOC: RAD 11:23 | PROVIDERS: ATTEND Nurse Practitioner Family | DX: R09.89 Other specified symptoms and signs involving the circulatory and respiratory systems (principal); R05.9 Cough, unspecified; R06.2 Wheezing ==

== ENCOUNTER → 2021-03-23 | Outpatient (CLI) | payer MEDICARE ==
[2021-03-23 09:34] LABS: CREATININE 1.3 mg/dL (0.55-1.02)
== END | disposition home or self-care (01) ==
LOC: CT 03-22 11:00 → LAB 08:58 → CT 09:00
PROVIDERS: Radiology Diagnostic Radiology; ATTEND Urology
DX: N13.30 Unspecified hydronephrosis (principal); K86.89 Other specified diseases of pancreas; R31.29 Other microscopic hematuria

== ENCOUNTER → 2021-03-27 | Outpatient (CLI) | payer MEDICARE ==
[2021-03-27 14:46] LABS: BASO % 0.6 % (0.0-1.0); EOS # 0.1 10*3/uL (0.0-0.4); EOS % 2.4 % (1.0-4.0); HEMATOCRIT 39.9 % (37.0-47.0); LYMPH % 20.6 % (27.0-41.0); MEAN CORPUSCULAR HGB 31.2 pg (27.0-31.0); MEAN CORPUSCULAR HGB CONC 33.6 g/dl (33.0-37.0); MEAN PLATELET VOLUME 8.4 fl (9.6-12.3); MONO # 0.8 10*3/uL (0.1-1.0); MONO % 16.9 % (3.0-9.0); NEUT # 2.9 10*3/uL (2.3-7.9); NEUT % 57.7 % (47.0-73.0); PLATELET COUNT AUTOMATED 391 10*3/uL (130-400); RED BLOOD COUNT 4.29 10*6/uL (4.10-5.10); RED CELL DISTRI WIDTH 12.6 % (0-14.5)
[2021-03-27 15:02] LABS: ALBUMIN 3.5 gm/dl (3.1-4.5); CREATININE 1.5 mg/dL (0.55-1.02); POTASSIUM 5.6 mmol/L (3.5-5.1); TOTAL PROTEIN 7.7 gm/dL (6.4-8.2)
[2021-03-27 15:10] LABS: THYROID STIM HORMONE (HS) 0.724 uIU/ml (0.358-4.75)
[2021-03-28 10:07] LABS: CREATININE,URINE 23.7 mg/dL (Not Estab.); MICRO ALBUMIN/CRE RATIO <13 (0-29)
== END | disposition home or self-care (01) ==
LOC: LAB 14:21
PROVIDERS: ATTEND Nurse Practitioner Family
DX: E11.9 Type 2 diabetes mellitus without complications (principal)

== ENCOUNTER → 2021-05-16 | Outpatient (CLI) | payer MEDICARE ==
[2021-05-16 11:23] LABS: BUN 22 mg/dl (7-24); CREATININE 1.06 mg/dL (0.55-1.02)
== END | disposition home or self-care (01) ==
LOC: LAB 10:59
PROVIDERS: ATTEND Urology
DX: N13.30 Unspecified hydronephrosis (principal)

== ENCOUNTER → 2021-05-21 | Outpatient (CLI) | payer MEDICARE | END | disposition home or self-care (01) | LOC: CT 04-30 09:00 | PROVIDERS: ATTEND Urology | DX: N13.30 Unspecified hydronephrosis (principal); K31.89 Other diseases of stomach and duodenum; K86.9 Disease of pancreas, unspecified ==

== ENCOUNTER → 2021-06-06 | Outpatient (CLI) | payer MEDICARE | END | disposition home or self-care (01) | LOC: NM 10:37 | PROVIDERS: ATTEND Urology | DX: N13.30 Unspecified hydronephrosis (principal) ==

== ENCOUNTER → 2021-11-15 | Outpatient (CLI) | payer MEDICARE | END | disposition home or self-care (01) | LOC: RAD 11:49 | PROVIDERS: ATTEND Nurse Practitioner Family | DX: M19.031 Primary osteoarthritis, right wrist (principal); M85.841 Other specified disorders of bone density and structure, right hand ==

== ENCOUNTER → 2021-12-31 | Outpatient (CLI) | payer MEDICARE ==
[2021-12-31 10:41] LABS: BILIRUBIN Negative (Negative); BLOOD Negative (Negative); CLARITY Clear (Clear); COLOR Yellow (Yellow); GLUCOSE 3+ (Negative); KETONE Negative (Negative); LEUKO ESTERASE 2+ (Negative); NITRITE Negative (Negative); PH 5.5 (4.5-8.0); SPECIFIC GRAVITY 1.015 (1.001-1.030); UROBILINOGEN 0.2 E.U./dl (0.0-1.0)
[2021-12-31 10:48] LABS: BACTERIA 3+; WBC 31-40 wbc/hpf (0-5)
[2021-12-31 10:54] LABS: ALKALINE PHOSPHATASE 103 U/L (45-117); BUN 18 mg/dl (7-24); CHLORIDE 107 mmol/L (98-107); CHOLESTEROL 143 mg/dL (<200); CREATININE 1.06 mg/dL (0.55-1.02); FREE T4 1.17 ng/dl (0.76-1.46); LDL CHOLESTEROL 64 mg/dL (9-159); POTASSIUM 4.2 mmol/L (3.5-5.1); SGOT/AST 15 IU/L (3-35); SGPT/ALT 23 U/L (12-78); SODIUM 140 mmol/L (136-145); TOTAL PROTEIN 7.2 gm/dL (6.4-8.2); TRIGLYCERIDES 102 mg/dl (<150)
== END | disposition home or self-care (01) ==
LOC: LAB 09:44
PROVIDERS: ATTEND Internal Medicine
DX: E11.65 Type 2 diabetes mellitus with hyperglycemia (principal); E03.9 Hypothyroidism, unspecified; E55.9 Vitamin D deficiency, unspecified; E78.5 Hyperlipidemia, unspecified

== ENCOUNTER → 2022-04-19 | Outpatient (CLI) | payer MEDICARE ==
[2022-04-19 08:39] LABS: BASO % 0.4 % (0.0-1.0); EOS # 0.2 10*3/uL (0.0-0.4); EOS % 3.6 % (1.0-4.0); LYMPH # 1.3 10*3/uL (1.3-4.4); LYMPH % 18.6 % (27.0-41.0); MEAN CELL VOLUME 93.3 fl (81.0-99.0); MEAN CORPUSCULAR HGB 30.4 pg (27.0-31.0); MEAN CORPUSCULAR HGB CONC 32.6 g/dl (33.0-37.0); MEAN PLATELET VOLUME 9.1 fl (9.6-12.3); MONO # 0.8 10*3/uL (0.1-1.0); MONO % 11.1 % (3.0-9.0); NEUT # 4.5 10*3/uL (2.3-7.9); PLATELET COUNT AUTOMATED 294 10*3/uL (130-400); RED BLOOD COUNT 4.61 10*6/uL (4.10-5.10); WHITE BLOOD COUNT 6.8 10*3/uL (4.8-10.8)
[2022-04-19 08:58] LABS: POTASSIUM 4.9 mmol/L (3.4-5.1); THYROID STIM HORMONE (HS) 2.518 uIU/ml (0.550-4.780); TOTAL PROTEIN 6.8 gm/dL (6.0-8.0)
== END | disposition home or self-care (01) ==
LOC: LAB 08:11
PROVIDERS: ATTEND Nurse Practitioner Family
DX: E11.9 Type 2 diabetes mellitus without complications (principal); I10 Essential (primary) hypertension; E03.9 Hypothyroidism, unspecified; E78.5 Hyperlipidemia, unspecified

== ENCOUNTER → 2022-04-30 | Outpatient (CLI) | payer MEDICARE ==
[2022-04-30 14:20] LABS: BASO % 0.7 % (0.0-1.0); EOS # 0.2 10*3/uL (0.0-0.4); EOS % 3.2 % (1.0-4.0); HEMATOCRIT 41.8 % (37.0-47.0); LYMPH # 1.4 10*3/uL (1.3-4.4); LYMPH % 23.1 % (27.0-41.0); MEAN CELL VOLUME 93.1 fl (81.0-99.0); MEAN CORPUSCULAR HGB 30.1 pg (27.0-31.0); MEAN CORPUSCULAR HGB CONC 32.3 g/dl (33.0-37.0); MONO # 0.7 10*3/uL (0.1-1.0); MONO % 12.2 % (3.0-9.0); NEUT # 3.6 10*3/uL (2.3-7.9); NEUT % 60.6 % (47.0-73.0); PLATELET COUNT AUTOMATED 273 10*3/uL (130-400); RED BLOOD COUNT 4.49 10*6/uL (4.10-5.10); RED CELL DISTRI WIDTH 12.2 % (0-14.5); WHITE BLOOD COUNT 5.9 10*3/uL (4.8-10.8)
[2022-04-30 14:40] LABS: ALKALINE PHOSPHATASE 88 U/L (46-116); BUN 18 mg/dl (9-23); CHLORIDE 102 mmol/L (98-107); CHOLESTEROL 130 mg/dL (<200); LDL CHOLESTEROL 56 mg/dL (9-159); POTASSIUM 4.6 mmol/L (3.4-5.1); SGPT/ALT 18 U/L (10-49); THYROID STIM HORMONE (HS) 2.079 uIU/ml (0.550-4.780); TOTAL PROTEIN 6.7 gm/dL (6.0-8.0); TRIGLYCERIDES 127 mg/dl (<150)
== END | disposition home or self-care (01) ==
LOC: LAB 13:37
PROVIDERS: ATTEND Nurse Practitioner Family
DX: E11.9 Type 2 diabetes mellitus without complications (principal); E78.5 Hyperlipidemia, unspecified; E03.9 Hypothyroidism, unspecified; I10 Essential (primary) hypertension

== ENCOUNTER → 2022-06-07 | Outpatient (CLI) | payer MEDICARE ==
[2022-06-07 08:57] LABS: BILIRUBIN Negative (Negative); BLOOD Trace-Lysed (Negative); CLARITY Cloudy (Clear); COLOR Yellow (Yellow); GLUCOSE 3+ (Negative); KETONE Negative (Negative); LEUKO ESTERASE 3+ (Negative); NITRITE Negative (Negative); PH 5.5 (4.5-8.0); UROBILINOGEN 0.2 E.U./dl (0.0-1.0)
[2022-06-07 09:10] LABS: FREE T4 1.43 ng/dl (0.89-1.76); POTASSIUM 5.2 mmol/L (3.4-5.1); THYROID STIM HORMONE (HS) 2.329 uIU/ml (0.550-4.780)
[2022-06-07 10:20] LABS: BACTERIA 3+; WBC TNTC wbc/hpf (0-5)
== END | disposition home or self-care (01) ==
LOC: LAB 08:12
PROVIDERS: ATTEND Internal Medicine
DX: E11.65 Type 2 diabetes mellitus with hyperglycemia (principal); E03.9 Hypothyroidism, unspecified; E55.9 Vitamin D deficiency, unspecified; E78.5 Hyperlipidemia, unspecified

== ENCOUNTER → 2022-10-10 | Outpatient (CLI) | payer MEDICARE ==
[2022-10-10 09:28] LABS: BASO % 0.4 % (0.0-1.0); EOS # 0.2 10*3/uL (0.0-0.4); EOS % 2.8 % (1.0-4.0); HEMATOCRIT 41.7 % (37.0-47.0); LYMPH # 1.4 10*3/uL (1.3-4.4); LYMPH % 19.8 % (27.0-41.0); MEAN CELL VOLUME 91.2 fl (81.0-99.0); MEAN CORPUSCULAR HGB 30.6 pg (27.0-31.0); MEAN CORPUSCULAR HGB CONC 33.6 g/dl (33.0-37.0); MEAN PLATELET VOLUME 8.8 fl (9.6-12.3); MONO # 0.8 10*3/uL (0.1-1.0); MONO % 11.5 % (3.0-9.0); NEUT # 4.7 10*3/uL (2.3-7.9); NEUT % 65.2 % (47.0-73.0); PLATELET COUNT AUTOMATED 273 10*3/uL (130-400); RED BLOOD COUNT 4.57 10*6/uL (4.10-5.10); RED CELL DISTRI WIDTH 12.5 % (0-14.5); WHITE BLOOD COUNT 7.2 10*3/uL (4.8-10.8)
[2022-10-10 10:16] LABS: POTASSIUM 4.5 mmol/L (3.4-5.1); THYROID STIM HORMONE (HS) 2.278 uIU/ml (0.550-4.780); TOTAL PROTEIN 7.3 gm/dL (6.0-8.0)
== END | disposition home or self-care (01) ==
LOC: LAB 08:56
PROVIDERS: ATTEND Nurse Practitioner Family
DX: I10 Essential (primary) hypertension (principal); E03.9 Hypothyroidism, unspecified; E11.9 Type 2 diabetes mellitus without complications

== ENCOUNTER → 2022-10-18 | Outpatient (CLI) | payer MEDICARE | END | disposition home or self-care (01) | LOC: LAB 07:37 | PROVIDERS: ATTEND Nurse Practitioner Family | DX: E11.9 Type 2 diabetes mellitus without complications (principal); I10 Essential (primary) hypertension; E03.9 Hypothyroidism, unspecified; R79.89 Other specified abnormal findings of blood chemistry ==

== ENCOUNTER → 2022-11-08 | Outpatient (CLI) | payer MEDICARE | END | disposition home or self-care (01) | LOC: US 10-29 10:00 | PROVIDERS: ATTEND Nurse Practitioner Family | DX: N13.30 Unspecified hydronephrosis (principal); R79.89 Other specified abnormal findings of blood chemistry ==

== ENCOUNTER → 2022-12-11 | Outpatient (CLI) | payer MEDICARE ==
[2022-12-11 08:08] LABS: BILIRUBIN Negative (Negative); BLOOD Negative (Negative); CLARITY Clear (Clear); COLOR Yellow (Yellow); GLUCOSE 3+ (Negative); KETONE Negative (Negative); LEUKO ESTERASE Trace (Negative); NITRITE Negative (Negative); PH 5.5 (4.5-8.0); SPECIFIC GRAVITY 1.015 (1.001-1.030)
[2022-12-11 08:36] LABS: FREE T4 1.31 ng/dl (0.89-1.76); POTASSIUM 4.7 mmol/L (3.4-5.1); TOTAL PROTEIN 6.7 gm/dL (6.0-8.0)
[2022-12-11 09:03] LABS: BACTERIA TRACE
== END | disposition home or self-care (01) ==
LOC: LAB 07:35
PROVIDERS: ATTEND Internal Medicine
DX: E11.65 Type 2 diabetes mellitus with hyperglycemia (principal); E55.9 Vitamin D deficiency, unspecified; E03.9 Hypothyroidism, unspecified; E78.5 Hyperlipidemia, unspecified

== ENCOUNTER → 2023-01-10 | Outpatient (CLI) | payer MEDICARE ==
[2023-01-10 08:57] LABS: BASO % 0.3 % (0.0-1.0); EOS # 0.3 10*3/uL (0.0-0.4); EOS % 4.1 % (1.0-4.0); HEMATOCRIT 42.7 % (37.0-47.0); LYMPH # 1.4 10*3/uL (1.3-4.4); LYMPH % 22.9 % (27.0-41.0); MEAN CELL VOLUME 93.8 fl (81.0-99.0); MEAN CORPUSCULAR HGB 30.3 pg (27.0-31.0); MEAN CORPUSCULAR HGB CONC 32.3 g/dl (33.0-37.0); MEAN PLATELET VOLUME 8.8 fl (9.6-12.3); MONO # 0.9 10*3/uL (0.1-1.0); MONO % 15.2 % (3.0-9.0); NEUT # 3.5 10*3/uL (2.3-7.9); NEUT % 57.2 % (47.0-73.0); PLATELET COUNT AUTOMATED 246 10*3/uL (130-400); RED BLOOD COUNT 4.55 10*6/uL (4.10-5.10); RED CELL DISTRI WIDTH 12.5 % (0-14.5); WHITE BLOOD COUNT 6.1 10*3/uL (4.8-10.8)
[2023-01-10 09:28] LABS: POTASSIUM 5.1 mmol/L (3.4-5.1)
== END | disposition home or self-care (01) ==
LOC: LAB 08:24
PROVIDERS: ATTEND Nurse Practitioner Family
DX: E03.9 Hypothyroidism, unspecified (principal); E11.9 Type 2 diabetes mellitus without complications; I10 Essential (primary) hypertension; R79.89 Other specified abnormal findings of blood chemistry; G60.9 Hereditary and idiopathic neuropathy, unspecified; G62.9 Polyneuropathy, unspecified

== ENCOUNTER → 2023-05-21 | Outpatient (CLI) | payer MEDICARE ==
[2023-05-21 09:36] LABS: BILIRUBIN Negative (Negative); BLOOD Negative (Negative); CLARITY Clear (Clear); COLOR Yellow (Yellow); GLUCOSE 3+ (Negative); KETONE Negative (Negative); LEUKO ESTERASE 1+ (Negative); NITRITE Negative (Negative); PH 5.5 (4.5-8.0); SPECIFIC GRAVITY 1.015 (1.001-1.030); UROBILINOGEN 0.2 E.U./dl (0.0-1.0)
[2023-05-21 09:47] LABS: WBC 21-30 wbc/hpf (0-5)
[2023-05-21 09:48] LABS: EPITHELIAL CELLS 0-2
[2023-05-21 10:04] LABS: POTASSIUM 4.8 mmol/L (3.4-5.1); TOTAL PROTEIN 7.2 gm/dL (6.0-8.0)
[2023-05-21 10:21] LABS: FREE T4 1.27 ng/dl (0.89-1.76)
[2023-05-21 10:43] LABS: URINE CREATININE RANDOM 32.46 mg/dL
== END | disposition home or self-care (01) ==
LOC: LAB 09:00
PROVIDERS: ATTEND Internal Medicine
DX: E11.65 Type 2 diabetes mellitus with hyperglycemia (principal); E55.9 Vitamin D deficiency, unspecified; E03.9 Hypothyroidism, unspecified; E78.5 Hyperlipidemia, unspecified; F41.9 Anxiety disorder, unspecified; J30.2 Other seasonal allergic rhinitis

== ENCOUNTER → 2023-06-02 | Outpatient (CLI) | payer MEDICARE | END | disposition home or self-care (01) | LOC: ORTHO 02:24 | PROVIDERS: ATTEND Orthopaedic Surgery | DX: M19.012 Primary osteoarthritis, left shoulder (principal) ==

== ENCOUNTER → 2023-09-11 | Outpatient (CLI) | payer MEDICARE ==
[2023-09-11 11:57] LABS: BASO % 0.6 % (0.0-1.0); EOS # 0.4 10*3/uL (0.0-0.4); EOS % 6.9 % (1.0-4.0); HEMATOCRIT 41.2 % (37.0-47.0); LYMPH # 1.5 10*3/uL (1.3-4.4); LYMPH % 23.4 % (27.0-41.0); MEAN CELL VOLUME 91.6 fl (81.0-99.0); MEAN CORPUSCULAR HGB 30.2 pg (27.0-31.0); MONO # 0.8 10*3/uL (0.1-1.0); MONO % 12.3 % (3.0-9.0); NEUT # 3.6 10*3/uL (2.3-7.9); NEUT % 56.5 % (47.0-73.0); PLATELET COUNT AUTOMATED 253 10*3/uL (130-400); RED CELL DISTRI WIDTH 12.6 % (0-14.5); WHITE BLOOD COUNT 6.4 10*3/uL (4.8-10.8)
[2023-09-11 12:24] LABS: POTASSIUM 5.1 mmol/L (3.4-5.1); TOTAL PROTEIN 6.8 gm/dL (6.0-8.0)
== END | disposition home or self-care (01) ==
LOC: LAB 11:02
PROVIDERS: ATTEND Nurse Practitioner Family
DX: I10 Essential (primary) hypertension (principal); E11.9 Type 2 diabetes mellitus without complications; E03.9 Hypothyroidism, unspecified; K21.9 Gastro-esophageal reflux disease without esophagitis

== ENCOUNTER → 2024-01-14 | Outpatient (CLI) | payer MEDICARE ==
[2024-01-14 11:13] LABS: BASO % 0.5 % (0.0-1.0); EOS # 0.3 10*3/uL (0.0-0.4); EOS % 3.9 % (1.0-4.0); HEMATOCRIT 42.9 % (37.0-47.0); LYMPH # 1.6 10*3/uL (1.3-4.4); LYMPH % 24.2 % (27.0-41.0); MEAN CELL VOLUME 93.3 fl (81.0-99.0); MEAN CORPUSCULAR HGB CONC 32.2 g/dl (33.0-37.0); MEAN PLATELET VOLUME 8.9 fl (9.6-12.3); MONO # 0.7 10*3/uL (0.1-1.0); MONO % 10.5 % (3.0-9.0); NEUT # 3.9 10*3/uL (2.3-7.9); NEUT % 60.6 % (47.0-73.0); PLATELET COUNT AUTOMATED 281 10*3/uL (130-400); RED CELL DISTRI WIDTH 12.6 % (0-14.5); WHITE BLOOD COUNT 6.4 10*3/uL (4.8-10.8)
[2024-01-14 11:41] LABS: POTASSIUM 4.6 mmol/L (3.4-5.1)
== END | disposition home or self-care (01) ==
LOC: LAB 09:55
PROVIDERS: ATTEND Nurse Practitioner Family
DX: I10 Essential (primary) hypertension (principal); E03.9 Hypothyroidism, unspecified; E11.9 Type 2 diabetes mellitus without complications; E78.5 Hyperlipidemia, unspecified

== ENCOUNTER → 2024-02-18 | Outpatient (CLI) | payer MEDICARE | END | disposition home or self-care (01) | LOC: RAD 14:03 | PROVIDERS: ATTEND Nurse Practitioner Family | DX: M19.041 Primary osteoarthritis, right hand (principal); Z91.81 History of falling ==

== ENCOUNTER 2024-02-26 16:39 | Emergency (ER) | payer MEDICARE ==
[~2024-02-26] VITALS: Ht 154.9 cm; Wt 85.3 kg
== END 2024-02-26 20:46 | disposition left against medical advice (07) ==
LOC: ED 16:39
DX: S00.83XA Contusion of other part of head, initial encounter (principal); Z53.29 Procedure and treatment not carried out because of patient's decision for other reasons; I10 Essential (primary) hypertension; J45.909 Unspecified asthma, uncomplicated; E11.9 Type 2 diabetes mellitus without complications; Z79.4 Long term (current) use of insulin; F41.9 Anxiety disorder, unspecified; E78.5 Hyperlipidemia, unspecified; Z88.6 Allergy status to analgesic agent; Z88.8 Allergy status to other drugs, medicaments and biological substances; Z98.890 Other specified postprocedural states; Z96.651 Presence of right artificial knee joint; W19.XXXA Unspecified fall, initial encounter; Y93.89 Activity, other specified; Y92.009 Unspecified place in unspecified non-institutional (private) residence as the place of occurrence of the external cause; Y99.8 Other external cause status

== ENCOUNTER 2025-03-05 15:55 | Emergency (ER) | payer MEDICARE ==
[~2025-03-05] VITALS: Ht 152.4 cm; Wt 83.9 kg
== END 2025-03-05 17:44 | disposition home or self-care (01) ==
LOC: ED 15:55
DX: S00.03XA Contusion of scalp, initial encounter (principal); R41.0 Disorientation, unspecified; M19.90 Unspecified osteoarthritis, unspecified site; J45.909 Unspecified asthma, uncomplicated; E11.9 Type 2 diabetes mellitus without complications; I10 Essential (primary) hypertension; E03.9 Hypothyroidism, unspecified; Z88.8 Allergy status to other drugs, medicaments and biological substances; Z88.6 Allergy status to analgesic agent; Z79.899 Other long term (current) drug therapy; Z98.890 Other specified postprocedural states; Z96.651 Presence of right artificial knee joint; W03.XXXA Other fall on same level due to collision with another person, initial encounter; Y93.89 Activity, other specified; Y92.89 Other specified places as the place of occurrence of the external cause; Y99.8 Other external cause status